=== PATIENT | male | born 1980 | race Hispanic/Latino ===

== ENCOUNTER 2023-11-30 21:18 | Emergency (ER) | payer SELFPAY ==
[2023-11-30 21:20] VITALS: BP 155/122
--- NOTE | 2023-11-30 21:48 | ED.GENMED ---
History of Present Illness
<TALIA Sahni - Last Filed: 12/01/23 03:26>
General
Chief Complaint: Back Pain
Source: patient
Exam Limitations: none
Time Seen by Provider: 11/30/23 21:27
Travel History
Have you had any contact with someone who has COVID-19?: No
Do you have any symptoms of coronavirus? Fever > 100 degrees, chills, cough, shortness of breath, sore throat, loss of taste or smell, muscle aches, or headache?: No
History of Present Illness
History of Present Illness:
This is a 43 year old male that comes in with c/o neck and back pain. States that he was lifting boxes at work and he has to straddle the conveyor belt. States that he was lifting [place] fries, Cheese steaks, Chicken and [place]. States that this was
2 weeks ago. States that at first his pain was not bad but this has continued to get worse. States that in the morning he can't feel his legs. States that he just cry's in pain in the morning and that they feel numb. States that he has some abd gwen
with nausea, headache and dizziness yesterday. Denies any fever, chills, chest pain, SOB, vomiting, diarrhea, urinary burning.
Past History
<TALIA Sahni - Last Filed: 12/01/23 03:26>
Past History
ED Past Medical History: HTN, Psychiatric (Anxiety) and Other (Obstructive sleep apnea, obesity, gout, chronic back pain, Neck pain, Chronic hip pain, )
ED Past Surgical History: Appendectomy
Social History
Tobacco: Non-smoker
Alcohol: None
Drug: None
Personal: Other (Seperated)
Living: with family
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
Family History
Family History: Other (Noncontributory)
Review of Systems
<TALIA Sahni - Last Filed: 12/01/23 03:26>
Review of Systems
All Other Systems: ROS reviewed and negative except as documented in HPI and ROS
Constitutional: Reports no symptoms; Denies fever or chills
EENT: Reports no symptoms
Respiratory: Reports no symptoms; Denies cough or trouble breathing
Cardiac: Reports no symptoms; Denies chest pain
ABD/GI: Reports abdominal pain and nausea; Denies vomiting or diarrhea
: Reports no symptoms; Denies dysuria, frequency or urgency
Musculoskeletal: Reports neck pain and back pain
Skin: Reports no symptoms
Neurological: Reports dizzy (Yesterday) and headache
Psychiatric: Reports no symptoms
Phy Exam
<TALIA Sahni - Last Filed: 12/01/23 03:26>
General Physical Exam
General Presentation: no apparent distress
General age: appears stated age
General Skin: warm and dry
General Habitus: normal
General Mental: alert
ENT Exam
ENT Exam: TM's normal, pharynx normal and neck supple
Eye Exam
Eye Exam: EOMI
Cardiovascular Exam
Cardiovascular Exam: regular rate/rhythm, no edema, no murmur and normal peripheral pulses
Pulmonary Exam
Pulmonary Exam: lungs clear, no respiratory distress, no rales, chest non tender, no crackles, no rhonchi, no wheezing and no cough
Gastrointestinal Exam
Gastrointestinal Exam: normal bowel sounds (Patient is eating a large [employer]), non tender, soft, no organomegaly, no pulsatile mass, non distended and other (Normal rectal Tone)
Musculoskeletal Exam
Musculoskeletal Exam: full ROM, no edema and other (C/o Cervical and spinal tenderness with palpation, Left leg smaller then right, Patient able to life his legs off the bed. )
Skin Exam
Skin Exam: normal color, warm/dry, no rash, no petechia and other (States that his sensation is less on the left with palpation)
Psychiatric Exam
Psychiatric Exam: normal mood/affect
Course
<TALIA Sahni - Last Filed: 12/01/23 03:26>
Orders/Labs/Results
Orders:
Orders
11/30/23 21:43
CT Cervical Spine W/o Iv Contr Urgent
Comment:
Reason For Exam: Pain
CT Lumbar Spine W/o Iv Contras Urgent
Comment:
Reason For Exam: Low back pain
11/30/23 21:44
Acetaminophen [Tylenol] 1,000 mg PO NOW STA
Ketorolac [Toradol] 30 mg IV NOW STA
11/30/23 21:48
Dexamethasone Sod Phosphate [Decadron] 20 mg IV NOW STA
11/30/23 21:52
CRP [C-Reactive Protein] Urgent
Complete Blood Count/With Diff Urgent
Comprehensive Metabolic Panel Urgent
Sed Rate [Erythrocyte Sed Rate] Urgent
11/30/23 22:30
EKG [Electrocardiogram (*1)] Urgent
Reason for Study: Chest Pain
EKG- Treatment ONCE
11/30/23 23:00
Troponin I Urgent
11/30/23 23:46
US Abdomen Complete/Upper Urgent
Comment:
Reason For Exam: Right sided abd pain
12/01/23 01:42
MR Lumbar Without Contrast Stat
Comment:
Reason For Exam: LE numbness, urinary retention
Recent pill cam endoscopy?: No
12/01/23 02:28
Lorazepam [Ativan] 2 mg IV NOW STA
12/01/23 02:32
Haloperidol Lactate [Haldol] 5 mg IM NOW STA
12/01/23 02:50
Lorazepam [Ativan] 1 mg IV NOW STA
12/01/23 02:52
Flumazenil [Romazicon] 0.5 mg .ROUTE .STK-MED ONE
Abnormal Lab Results
11/30/23
21:52
WBC 4.1 L 10^3/uL
(4.8-10.8)
RBC 4.28 L 10^6/uL
(4.70-6.10)
Hgb 11.4 L g/dL
(13.0-18.0)
Hct 34.1 L %
(39.0-52.0)
MCV 79.7 L fL
(80.0-94.0)
MCH 26.6 L pg
(27.0-31.0)
MPV 10.9 H fL
(7.4-10.4)
Neutrophils % 36.5 L %
(42.2-75.2)
Monocytes % 10.1 H %
(1.7-9.3)
Eosinophils % 11.6 H %
(0-6)
ESR 21 H mm/hour
(0-20)
Sodium 134 L mmol/L
(135-145)
C-Reactive Protein 24.60 H mg/L
(0.0-10.00)
11/30/23 21:52
11/30/23 21:52
WBC very slightly low. H/H slightly low. Sed rate very slightly elevated CRP elevated. Troponin <0.012,
Vital Signs
Initial and Last Documented VS:
Initial Vital Signs
Temp Pulse Resp BP Pulse Ox
97.7 F 105 22 155/122 100
11/30/23 21:20 11/30/23 21:20 11/30/23 21:20 11/30/23 21:20 11/30/23 21:20
Last Documented Vital Signs
Temp Pulse Resp BP Pulse Ox
97.7 F 84 16 135/80 98
11/30/23 21:20 12/01/23 01:58 12/01/23 01:58 12/01/23 01:58 12/01/23 01:58
Painter Assistant consulted with Physician
Painter Assistant consulted with physician?: Yes
Name of Physician Consulted:
<Papito Begum, DO - Last Filed: 12/01/23 02:50>
Orders/Labs/Results
Orders:
Orders
11/30/23 21:43
CT Cervical Spine W/o Iv Contr Urgent
Comment:
Reason For Exam: Pain
CT Lumbar Spine W/o Iv Contras Urgent
Comment:
Reason For Exam: Low back pain
11/30/23 21:44
Acetaminophen [Tylenol] 1,000 mg PO NOW STA
Ketorolac [Toradol] 30 mg IV NOW STA
11/30/23 21:48
Dexamethasone Sod Phosphate [Decadron] 20 mg IV NOW STA
11/30/23 21:52
CRP [C-Reactive Protein] Urgent
Complete Blood Count/With Diff Urgent
Comprehensive Metabolic Panel Urgent
Sed Rate [Erythrocyte Sed Rate] Urgent
11/30/23 22:30
EKG [Electrocardiogram (*1)] Urgent
Reason for Study: Chest Pain
EKG- Treatment ONCE
11/30/23 23:00
Troponin I Urgent
11/30/23 23:46
US Abdomen Complete/Upper Urgent
Comment:
Reason For Exam: Right sided abd pain
12/01/23 01:42
MR Lumbar Without Contrast Stat
Comment:
Reason For Exam: LE numbness, urinary retention
Recent pill cam endoscopy?: No
12/01/23 02:28
Lorazepam [Ativan] 2 mg IV NOW STA
12/01/23 02:32
Haloperidol Lactate [Haldol] 5 mg IM NOW STA
12/01/23 02:50
Lorazepam [Ativan] 1 mg IV NOW STA
12/01/23 02:52
Flumazenil [Romazicon] 0.5 mg .ROUTE .STK-MED ONE
Abnormal Lab Results
11/30/23
21:52
WBC 4.1 L 10^3/uL
(4.8-10.8)
RBC 4.28 L 10^6/uL
(4.70-6.10)
Hgb 11.4 L g/dL
(13.0-18.0)
Hct 34.1 L %
(39.0-52.0)
MCV 79.7 L fL
(80.0-94.0)
MCH 26.6 L pg
(27.0-31.0)
MPV 10.9 H fL
(7.4-10.4)
Neutrophils % 36.5 L %
(42.2-75.2)
Monocytes % 10.1 H %
(1.7-9.3)
Eosinophils % 11.6 H %
(0-6)
ESR 21 H mm/hour
(0-20)
Sodium 134 L mmol/L
(135-145)
C-Reactive Protein 24.60 H mg/L
(0.0-10.00)
11/30/23 21:52
11/30/23 21:52
Vital Signs
Initial and Last Documented VS:
Initial Vital Signs
Temp Pulse Resp BP Pulse Ox
97.7 F 105 22 155/122 100
11/30/23 21:20 11/30/23 21:20 11/30/23 21:20 11/30/23 21:20 11/30/23 21:20
Last Documented Vital Signs
Temp Pulse Resp BP Pulse Ox
97.7 F 84 16 135/80 98
11/30/23 21:20 12/01/23 01:58 12/01/23 01:58 12/01/23 01:58 12/01/23 01:58
<TALIA Sahni - Last Filed: 12/01/23 03:26>
MDM/Problems Addressed
Differential Diagnosis Includes:
chronic back and neck pain, Herniated disc, Compression fractures
MDM/Problems Addressed:
This is a 43 year old male that comes in with c/o neck and back pain. States that this started 2 weeks ago from lifting heavy boxes and it has continued to get worse.
Will get CT of Cervical and Lumbar spine, Medicate for pain.
Back into see patient. Explained that his Blood work is normal. His CT of the Cervical spine and Lumbar spine shows degenerative changes. Patient States that he doesn't understand why he can't feel his feet in the morning. States that he wants to
stay in the hospital so some one can see how he is in the morning. Now patient is also c/o right sided abd pain. Will get US.
US cont- normal limits. Pancreas obscured by bowel gas.NO appreciable focal abnormality in the liver. Liver mildly enlarged [id number] approximately 18.5cm in length. Bilateral kidneys appear normal and are symmetric. Borderline enlarged spleen
measuring 13.3cm in length. NO appreciable free fluid.
DR Begum into see patient.
Patient had 1000ml of urine in his bladder. Patient then walked with the bathroom with the use of a walker and was able to urinate 900 and there is still 150mg post void. Will hold off on Borden catheter.
After Multiple conversation with Dr. Begum. The geothermal technician was called in. Patient was given IV Ativan 2 mg and Haldol 5mg IM. Patient got down to the MRI and then refused to have the Testing done. Nursing was sent with an additional Atival 1mg for IV
use and patient refused. Patient at this time is refusing to sign the AMA form as he has repeated over and over that he will follow up with his family doctor tomorrow. Explained that he can stay in the ER until the medication that he has been given
wears off and then he can leave. The AMA form was explained to patient and the risk read. Patient continues to refused.
Chronic conditions affecting care:
Chronic back and neck pain
Acute Exacerbation and/or Progression of Chronic Illness:
Chronic back and neck pain
<TALIA Sahni - Last Filed: 12/01/23 03:26>
*Radiology
Radiology exam reviewed: radiology read reviewed (Cervical spine-Multilevel cervical degenerative disc disease. Lumbar- there is multilevel lumbar degenerative disc disease and degenerative facet joint disease as outlined above. ) and other (US-No
acute findings. No appreciable gallstones or sludge within the gallbladder. Suspected 3mm gallbladder polyp. No appreciable gallbladder wall thickening or perichoecystic fluid. Negative sonographic Hickey's sign per report. NO ductal dilation. CBD
measures 4mm in diameter which is within)
*Pulse Oximetry
Patient hypoxic: no
*EKG
Interpreted by ED Provider?: Yes
Heart Rate: 78
Rate: normal
Rhythm: sinus
[place]: left axis deviation
Interval: normal interval
QRS Pattern: normal QRS
Ischemia: no ischemia
*Engine Head Repairer Interpretation
Rate: Engine Head Repairer- N/A
*Critical Care Note
Total Time (30-74mins, 75-104mins- exclusive of procedures): Not Applicable
<Papito Begum DO - Last Filed: 12/01/23 02:50>
Update Note
Update Note:
0249 multiple conversations with the patient as he is concerned about his anxiety related to an MRI. In light of his numbness and urinary described as emergency and that this needed to be done as soon as possible. Will trial sedation with Haldol
and Ativan.
ED Attending Note
<TALIA Sahni - Last Filed: 12/01/23 03:26>
-
Portions of this chart may have been created with voice recognition software.� Occasional wrong word or��sound alike� substitutions may have occurred due to the inherent limitations of voice recognition software.
<Papito Begum DO - Last Filed: 12/01/23 02:50>
ED Attending Note
Patient seen and examined by attending physician: Yes
I performed the substantive portion of visit, reviewed & personally made and approve the management plan that is documented in note by myself or MALCOLM.: Yes
ED Attending Note:
43-year-old male presents with bilateral lower extremity numbness. About 2 weeks ago he was lifting boxes. Patient now has numbness from his waist to his toes bilaterally. Patient also feels that he has to urinate but cannot has not urinated all
day. He also feels like he has been constipated. Patient denies fevers. Denies IV drug abuse. Exam: Normal bilateral pedal pulses. Is able to lift legs bilaterally. Bedside bladder scan shows 1 L of urine. Assessment and plan: Unfortunately
does need a stat MRI to rule out cauda equina syndrome in light of his urinary symptoms of bilateral lower extremity numbness. Case discussed with radiologist. MRI ordered. Patient states he is claustrophobic and will provide Ativan
Discharge Plan
Departure
Patient Disposition: Against Medical Advice
Date of Disposition: 12/01/23
Time of Disposition: 03:19
Patient with high blood pressure during this ER visit?: Yes
Condition: Good
Covid-19: Not Applicable
Discharge Problem:
Back pain, Bilateral leg numbness
Prescriptions:
No Action
losartan 50 MG tablet
100 mg PO DAILY
fluoxetine 10 MG capsule
20 mg PO DAILY
allopurinol 300 MG tablet
300 mg PO DAILY PRN (Reason: Gout)
alprazolam [Xanax] 1 mg Tablet
1 mg PO TID
buprenorphine-naloxone [Suboxone] 8-2 mg Tablet, Sublingual
1 tab SUBLINGUAL QID
Referrals:
Darion Jacob MD [Family Provider] -
Interventions
Interventions:
*Risk Screen - Suicide Last Done: 11/30/23 22:08
*General Assessment Last Done: 11/30/23 22:08
*Neglect/Abuse Screening Last Done: 11/30/23 22:08
*ED COVID-19 Vaccine History Last Done: 11/30/23 22:08
ED-Musculoskeletal Assessment Last Done: 11/30/23 22:10
[2023-11-30 21:57] LABS: % Basophils 0.7 % (0-2); % Eosinophils 11.6 % (0-6); % Immature Granulocytes 0.5 % (0-0.5); % Lymphocytes 40.6 % (20.5-51.1); % Monocytes 10.1 % (1.7-9.3); % Neutrophils 36.5 % (42.2-75.2); Absolute Eosinophils 0.5 10^3/uL (0-0.7); Absolute Lymphocytes 1.7 10^3/uL (1.2-3.4); Absolute Monocytes 0.4 10^3/uL (0.1-0.6); Absolute Neutrophils 1.5 10^3/uL (1.4-6.5); Hematocrit 34.1 % (39.0-52.0); Hemoglobin 11.4 g/dL (13.0-18.0); Mean Corp Hgb Conc. 33.4 g/dL (33.0-37.0); Mean Corpuscular Hgb 26.6 pg (27.0-31.0); Mean Corpuscular Volume 79.7 fL (80.0-94.0); Mean Platelet Volume 10.9 fL (7.4-10.4); Nucleated Red Blood Cells % 0 % (-); Platelet Count 220 10^3/uL (130-400); Red Blood Cell Count 4.28 10^6/uL (4.70-6.10); White Blood Cell Count 4.1 10^3/uL (4.8-10.8)
[2023-11-30] MEDS: TYLENOL 1000 MG PO (22:01)
[2023-11-30] MEDS: TORADOL 30 MG IV (22:03)
[2023-11-30] MEDS: DECADRON 20 MG IV (22:04)
[2023-11-30 22:07] VITALS: BMI 36.7
[2023-11-30 22:16] LABS: ALT (SGPT) 20 U/L (0-50); AST (SGOT) 33 U/L (17-59); Albumin 4.2 g/dl (3.5-5.0); Alkaline Phosphatase 80 U/L (38-126); Blood Urea Nitrogen 19 mg/dl (9-20); Calcium 9.1 mg/dl (8.4-10.2); Carbon Dioxide 25 mmol/L (22-30); Chloride 104 mmol/L (98-107); Estimated Creatinine Clearance > 125 ml/min; Glucose 89 mg/dl (70-99); Sodium 134 mmol/L (135-145); Total Bilirubin 0.7 mg/dl (0.2-1.3); Total Protein 7.2 g/dl (6.3-8.2); eGFR > 60.00
[2023-11-30 22:17] LABS: Erythrocyte Sed Rate 21 mm/hour (0-20)
[2023-11-30 23:01] VITALS: BP 130/89
[2023-11-30 23:28] LABS: Troponin I < 0.012 ng/ml
[2023-12-01 00:05] VITALS: BP 136/77
[2023-12-01 01:58] VITALS: BP 135/80
[2023-12-01] MEDS: ATIVAN 2 MG IV (02:45)
[2023-12-01] MEDS: HALDOL 5 MG IM (02:45)
[2023-12-01 03:19] VITALS: BP 129/80
[2023-12-01 04:00] VITALS: BP 106/55
[2023-12-01 05:00] VITALS: BP 110/71
[2023-12-01 06:00] VITALS: BP 109/67
--- NOTE | 2023-12-01 07:44 | EDRN ---
Patient given a copy of his CT scan reports and lab work. Taken to lobby in wheelchair.
== END 2023-12-01 07:40 | disposition left against medical advice (07) ==
LOC: EMR 21:18
PROVIDERS: Clinical Nurse Specialist Family Health; EMERGENCY PHYSICIAN Emergency Medicine; FAMILY PHYSICIAN Family Medicine
DX: M54.50 Low back pain, unspecified (principal); M54.2 Cervicalgia; R20.0 Anesthesia of skin; X50.1XXA Overexertion from prolonged static or awkward postures, initial encounter; Y99.0 Civilian activity done for income or pay; I10 Essential (primary) hypertension
CPT/HCPCS: 99285; 96374; 96375 ×2; 96372; 51798; 72125; 72131; 76700; 80053; 84484; 85025; 85652; 86140; 93005

== ENCOUNTER 2025-03-30 06:11 | Day surgery (SDC) | payer BC, SELFPAY ==
[2025-03-15 14:10] VITALS: BMI 36.1
[2025-03-15 14:12] LABS: Hematocrit 38.6 % (39.0-52.0); Hemoglobin 12.4 g/dL (13.0-18.0); Mean Corp Hgb Conc. 32.1 g/dL (33.0-37.0); Mean Corpuscular Volume 83.5 fL (80.0-94.0); Platelet Count 264 10^3/uL (130-400); Red Cell Dist. Width 13.6 % (11.5-14.5)
[2025-03-15 14:48] LABS: ALT (SGPT) 21 U/L (0-50); AST (SGOT) 20 U/L (17-59); Albumin 4.6 g/dl (3.5-5.0); Alkaline Phosphatase 93 U/L (38-126); Blood Urea Nitrogen 17 mg/dl (9-20); Calcium 9.6 mg/dl (8.4-10.2); Carbon Dioxide 30 mmol/L (22-30); Chloride 103 mmol/L (98-107); Estimated Creatinine Clearance > 125 ml/min; Glucose 98 mg/dl (70-99); Potassium 4.6 mmol/L (3.5-5.1); Sodium 140 mmol/L (135-145); Total Protein 7.2 g/dl (6.3-8.2); eGFR > 60.00
[2025-03-23 09:05] VITALS: BMI 36.1
[2025-03-30] VITALS (9 sets, daily range): BP systolic 110–123; BP diastolic 61–79; BMI 36.1
[2025-03-30] MEDS: TYLENOL 1000 MG PO (11:23)
[2025-03-30] MEDS: METHOCARBAMOL 1500 MG PO (11:23)
[2025-03-30] MEDS: LYRICA 150 MG PO (11:23)
[2025-03-30] MEDS: CELEBREX 200 MG PO (11:23)
[2025-03-30] MEDS: SUBUTEX 8 MG SL (12:34)
== END 2025-03-30 15:40 | disposition other institution (70) ==
LOC: SDS 06:11
PROVIDERS: ATTENDING PHYSICIAN Orthopaedic Surgery Orthopaedic Surgery of the Spine; FAMILY PHYSICIAN Family Medicine
DX: R06.02 Shortness of breath (principal); Z53.9 Procedure and treatment not carried out, unspecified reason; M50.321 Other cervical disc degeneration at C4-C5 level; M50.322 Other cervical disc degeneration at C5-C6 level; Z96.641 Presence of right artificial hip joint
CPT/HCPCS: 22551; 22552; C1713; 36415; 71045; 71046; 74177; 80053; 84484; 85025; 85027; 87070; 93005; Q9967

== ENCOUNTER 2025-03-30 15:52 | Emergency (ER) | payer BC, SELFPAY ==
[2025-03-30 15:55] VITALS: BP 129/76
[2025-03-30 16:34] LABS: Hematocrit 40.6 % (39.0-52.0); Hemoglobin 13.4 g/dL (13.0-18.0); Mean Corp Hgb Conc. 33.0 g/dL (33.0-37.0); Mean Corpuscular Volume 81.2 fL (80.0-94.0); Nucleated Red Blood Cells % 0 % (-); Platelet Count 189 10^3/uL (130-400); Red Cell Dist. Width 13.5 % (11.5-14.5)
[2025-03-30 16:48] LABS: ALT (SGPT) 19 U/L (0-50); AST (SGOT) 23 U/L (17-59); Albumin 4.5 g/dl (3.5-5.0); Alkaline Phosphatase 96 U/L (38-126); Blood Urea Nitrogen 22 mg/dl (9-20); Calcium 8.8 mg/dl (8.4-10.2); Carbon Dioxide 25 mmol/L (22-30); Chloride 106 mmol/L (98-107); Glucose 160 mg/dl (70-99); Potassium 4.3 mmol/L (3.5-5.1); Sodium 138 mmol/L (135-145); Total Protein 7.3 g/dl (6.3-8.2); eGFR > 60.00
[2025-03-30 16:59] LABS: Troponin I < 0.012 ng/ml
[2025-03-30 18:31] VITALS: BMI 34.8
[2025-03-30 18:32] VITALS: BP 115/64
[2025-03-30] MEDS: NSS 1000 IV (18:42)
[2025-03-30] MEDS: ZOFRAN 4 MG IV (18:44)
[2025-03-30 19:00] VITALS: BP 117/74
[2025-03-30] MEDS: DILAUDID 0.5 MG IV (19:36)
[2025-03-30 20:17] VITALS: BP 120/74
--- NOTE | 2025-03-30 20:46 | ED.GENMED ---
History of Present Illness
General
Chief Complaint: Breathing Problem
Source: patient
Exam Limitations: none
Time Seen by Provider: 03/30/25 18:22
Nursing documentation reviewed up to this point in time: agreed with
History of Present Illness
History of Present Illness:
Patient states he was scheduled for a surgical fusion but developed SOB and chest pain prior to procedure. Sent to ED for eval. He reports now pain is epigastric. No difficulty breathing, no chest pain. No prior history of same.
Past History
Past History
ED Past Medical History: HTN, Psychiatric (Anxiety) and Other (Obstructive sleep apnea, obesity, gout, chronic back pain, Neck pain, Chronic hip pain, )
ED Past Surgical History: Appendectomy
Social History
Tobacco: Non-smoker
Alcohol: None
Drug: None
Personal: Other (Seperated)
Living: with family
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
Family History
Family History: Other (Noncontributory)
Review of Systems
Review of Systems
Allergies reviewed?: Yes
All Other Systems: ROS reviewed and negative except as documented in HPI and ROS
Constitutional: Reports no symptoms
EENT: Reports no symptoms
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
Cardiac: Reports chest pain (Chest pain LAUNDRY ROUTE DRIVER)
ABD/GI: Reports abdominal pain (epigastric)
: Reports no symptoms
Musculoskeletal: Reports no symptoms
Skin: Reports no symptoms
Neurological: Reports no symptoms
Psychiatric: Reports no symptoms
Phy Exam
General Physical Exam
General Presentation: well appearing and no apparent distress
General age: appears stated age
General Skin: warm and dry
General Habitus: normal
General Mental: alert
Cardiovascular Exam
Cardiovascular Exam: regular rate/rhythm and no edema
Pulmonary Exam
Pulmonary Exam: lungs clear and no respiratory distress
Gastrointestinal Exam
Gastrointestinal Exam: normal bowel sounds, soft, no organomegaly, no pulsatile mass, non distended and no cva tenderness
Palpation: generalized: Moderate tenderness (Moderate epigastric pain)
Musculoskeletal Exam
Musculoskeletal Exam: full ROM and neuro vasc intact
Skin Exam
Skin Exam: normal color, warm/dry and no rash
Psychiatric Exam
Psychiatric Exam: normal mood/affect
Scores
Heart Failure Risk
Heart Failure Risk Score: Not Applicable
Course
Orders/Labs/Results
Orders:
Orders
03/30/25 15:57
Electrocardiogram (*1) Urgent
Reason for Study: Chest Pain
03/30/25 15:58
EKG- Treatment ONCE
03/30/25 16:21
Complete Blood Count/With Diff Urgent
Comprehensive Metabolic Panel Urgent
Troponin I Urgent
03/30/25 18:29
0.9% Sodium Chloride 1000 ml [Nss] 1,000 ml IV BOLUS
Ondansetron Injectable [Zofran] 4 mg IV NOW STA
03/30/25 18:30
CR Chest - 2 Views Urgent
Comment:
Reason For Exam: chest pain, attempted intubation this AM. Repeat.
03/30/25 19:06
HYDROmorphone [Dilaudid] 0.5 mg IV NOW STA
03/30/25 19:07
CT Abd/pelvis W Iv Cont Urgent
Comment:
Reason For Exam: diffuse pain
Abnormal Lab Results
03/30/25
16:21
MCH 26.8 L pg
(27.0-31.0)
Absolute Lymphs (auto) 0.3 L 10^3/uL
(1.2-3.4)
Neutrophils % 93.7 H %
(42.2-75.2)
Lymphocytes % 4.0 L %
(20.5-51.1)
BUN 22 H mg/dl
(9-20)
Glucose 160 H mg/dl
(70-99)
03/30/25 16:21
03/30/25 16:21
Vital Signs
Initial and Last Documented VS:
Initial Vital Signs
Temp Pulse Resp BP Pulse Ox
97.4 F 82 18 129/76 100
03/30/25 15:55 03/30/25 15:55 03/30/25 15:55 03/30/25 15:55 03/30/25 15:55
Last Documented Vital Signs
Temp Pulse Resp BP Pulse Ox
98.6 F 76 22 120/74 98
03/30/25 18:33 03/30/25 19:45 03/30/25 19:45 03/30/25 20:17 03/30/25 20:46
*Radiology
Radiology exam reviewed: radiology read reviewed
*Pulse Oximetry
SaO2: 98
Oxygen Mode of Delivery: Room air
Patient hypoxic: no
*Critical Care Note
Total Time (30-74mins, 75-104mins- exclusive of procedures): Not Applicable
Update Note
Update Note:
Patient to ED for report of SOB, CP prior to cervical spine surgery this AM/ Arrives in ED complaining of epigastric pain. Given IVF and dose of pain medications and symptoms have resolved. Labs, CXR, Abd CT results reviewed with him. No findings
to explain his symptoms. He is now symptom free. Will discharge home, close follow up wt PCP. Given instructions on s/s to return to ED and he is agreeable to pln.
ED Attending Note
-
Portions of this chart may have been created with voice recognition software.� Occasional wrong word or��sound alike� substitutions may have occurred due to the inherent limitations of voice recognition software.
Discharge Plan
Departure
Patient Disposition: Home (Routine Discharge)
Date of Disposition: 03/30/25
Time of Disposition: 20:46
Patient with high blood pressure during this ER visit?: No
Condition: Good
Covid-19: Not Applicable
Discharge Problem:
Abdominal pain
Instructions: Abdominal pain in adults - Discharge instructions
Prescriptions:
No Action
buprenorphine-naloxone [Suboxone] 8-2 mg Tablet, Sublingual
1 tab SUBLINGUAL QID
lamotrigine 200 mg Tablet
200 mg PO HS
clonazepam 1 mg Tablet
1 mg PO BID
prazosin 5 mg Capsule
5 mg PO HS
gabapentin 800 mg Tablet
800 mg PO PRN PRN (Reason: pain)
buspirone 30 mg Tablet
30 mg PO BID
hydroxyzine HCl 25 mg Tablet
25 mg PO HS
ibuprofen 600 mg Tablet
600 mg PO Q6H PRN (Reason: pain)
aripiprazole 10 mg Tablet
10 mg PO HS
duloxetine 30 mg Capsule,Delayed Release(Dr/Ec)
30 mg PO 1400
oxycodone 20 mg Tablet,Oral Only,Ext.Rel.12 Hr
20 mg PO QID
amphetamine sulfate 20 mg Tablet,Disintegrating
20 mg PO BID
amphetamine 20 mg Tablet, Ir - Er, Biphasic 24hr
30 mg PO DAILY
acetaminophen 500 mg Capsule
1,000 mg PO Q6H PRN (Reason: pain)
Referrals:
Darion Jacob MD [Family Provider, Family Practice] - Tomorrow
Activity Restrictions/Additional Instructions:
Return to the emergency department immediately for any changes in/worsening of your symptoms.
Interventions
Interventions:
*Risk Screen - Suicide Last Done: 03/30/25 15:55
*General Assessment Last Done: 03/30/25 15:55
*Neglect/Abuse Screening Last Done: 03/30/25 18:37
*ED- Fall Risk Assessment Last Done: 03/30/25 18:37
*ED COVID-19 Vaccine History Last Done: 03/30/25 18:37
*Nursing Disposition Last Done: 03/30/25 21:02
ED- Cardiac Assessment Last Done: 03/30/25 18:37
ED- Pulmonary Assessment Last Done: 03/30/25 18:37
Discharge Date and Time
Discharge Date/Time: 03/30/25 21:15
Print Language: CENTRAL AFRICAN
== END 2025-03-30 21:15 | disposition home or self-care (01) ==
LOC: EMR 15:52
PROVIDERS: Student in an Organized Health Care Education/Training Program; EMERGENCY PHYSICIAN Student in an Organized Health Care Education/Training Program; FAMILY PHYSICIAN Family Medicine
DX: R10.13 Epigastric pain (principal); I10 Essential (primary) hypertension; G89.29 Other chronic pain; G47.33 Obstructive sleep apnea (adult) (pediatric); Z90.49 Acquired absence of other specified parts of digestive tract
CPT/HCPCS: 71046; 74177; 80053; 84484; 85025; 93005; 96361; 96374; 96375; 99284; Q9967

== ENCOUNTER 2025-04-20 05:53 | Day surgery (SDC) | payer BC, SELFPAY ==
--- NOTE | 2025-04-18 14:49 | PTCARENOTE ---
Patients 03/30 CXR abnormal- reviewed by Dr. Maurer- no additional interventions required
[2025-04-20] VITALS (17 sets, daily range): BP systolic 104–144; BP diastolic 59–92; PULSE 79; BMI 34.3
[2025-04-20] MEDS: METHOCARBAMOL 1500 MG PO (06:24)
[2025-04-20] MEDS: LYRICA 150 MG PO (06:24)
[2025-04-20] MEDS: TYLENOL 1000 MG PO ×4 (06:24→23:33)
[2025-04-20] MEDS: CELEBREX 200 MG PO (06:25)
[2025-04-20] MEDS: NORMOSOL-R/PLASMALYTE-A 1000 IV ×3 (06:58→20:10)
[2025-04-20] MEDS: DILAUDID 0.5 MG IV ×3 (09:14→09:52)
[2025-04-20] MEDS: DILAUDID 0.25 MG IV (10:57)
--- NOTE | 2025-04-20 12:06 | W.PN.ORTHO ---
Today's Communication / Plan
-
d/c when stable
Assessment
.
Dressing:
Clean, dry and intact.
Assessment:
Chronic pain/opioid dependent-adjust pain control and monitor-Narcan prn inpatient and Rx OP
Plan
.
Surgery / Date: C4-5-[address] Tavarez 04/20/25
Activity:
Out of bed.
PT/OT
Discharge Plan: Home
Vital Signs and Labs
.
Vital Signs and Labs:
Temp Pulse Resp BP Pulse Ox
97.2 F 65 13 117/81 99
04/20/25 10:10 04/20/25 11:45 04/20/25 11:45 04/20/25 11:00 04/20/25 11:55
--- NOTE | 2025-04-20 12:18 | W.DS.TRANS ---
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
-
Discharge Instructions:
Discharge Diagnosis/Procedures C4-5-6 ACDF Tavarez 04/20/25
Diet As tolerated
Driving Restrictions No driving
Instructions:
Stand-Alone Forms: [facility] Cervical D/C Inst.
Changes to Home Medications: Yes
Discharge Medications:
DC Medications w/original date entered in [facility]
buprenorphine 8 mg-naloxone 2 mg sublingual tablet 1 tab sublingual QID 02/20/23
acetaminophen 500 mg capsule 1,000 mg PO Q6H PRN pain 03/23/25
amphetamine 20 mg tablet, immediate and extended release 24 hour 30 mg PO DAILY 03/23/25
aripiprazole 10 mg tablet 10 mg PO HS 03/23/25
buspirone 30 mg tablet 30 mg PO BID 03/23/25
clonazepam 1 mg tablet 1 mg PO BID 03/23/25
gabapentin 800 mg tablet 800 mg PO PRN PRN pain 03/23/25
hydroxyzine HCl 25 mg tablet 25 mg PO HS 03/23/25
lamotrigine 200 mg tablet 200 mg PO HS 03/23/25
prazosin 5 mg capsule 5 mg PO HS 03/23/25
amphetamine sulfate 10 mg tablet 20 mg PO BID 04/08/25
Saccharomyces boulardii 250 mg capsule (Florastor) 250 mg PO BID #1 cap 04/20/25
cephalexin 500 mg capsule 500 mg PO QID infection prevention #20 caps 04/20/25
dexamethasone 4 mg tablet 4 mg PO BID inflammation #6 tabs 04/20/25
docusate sodium 100 mg capsule (Colace) 100 mg PO BID stool softner #1 cap 04/20/25
magnesium hydroxide 400 mg/5 mL oral suspension (Milk of Magnesia) 30 ml PO HS PRN constipation #1 mL 04/20/25
naloxone 4 mg/actuation nasal spray (Narcan) 4 mg intranasal Q2M PRN opioid overdose #1 ea 04/20/25
ondansetron 4 mg disintegrating tablet 4 mg PO Q6H PRN n/v #20 tabs 04/20/25
oxycodone 20 mg tablet 20 mg PO Q6H PRN pain 04/20/25
sennosides 8.6 mg tablet (Senokot) 17.2 mg (2 x 8.6 mg) PO BID laxative #2 tabs 04/20/25
Home Medication Changes
Saccharomyces boulardii 250 mg capsule (Florastor) 250 mg PO BID #1 cap 04/20/25
cephalexin 500 mg capsule 500 mg PO QID infection prevention #20 caps 04/20/25
dexamethasone 4 mg tablet 4 mg PO BID inflammation #6 tabs 04/20/25
docusate sodium 100 mg capsule (Colace) 100 mg PO BID stool softner #1 cap 04/20/25
magnesium hydroxide 400 mg/5 mL oral suspension (Milk of Magnesia) 30 ml PO HS PRN constipation #1 mL 04/20/25
naloxone 4 mg/actuation nasal spray (Narcan) 4 mg intranasal Q2M PRN opioid overdose #1 ea 04/20/25
ondansetron 4 mg disintegrating tablet 4 mg PO Q6H PRN n/v #20 tabs 04/20/25
Pending Results: No
[2025-04-20] MEDS: VALIUM INJECTION 5 MG IV ×2 (13:47→20:11)
[2025-04-20] MEDS: ROXICODONE 20 MG PO ×3 (13:47→23:31)
[2025-04-20] MEDS: SUBUTEX 8 MG SL ×3 (15:37→23:31)
[2025-04-20] MEDS: DECADRON 4 MG IV ×2 (16:02→23:34)
[2025-04-20] MEDS: LYRICA 100 MG PO ×2 (16:03→23:33)
[2025-04-20] MEDS: ANCEF 5 IV ×2 (16:03→23:34)
[2025-04-20] MEDS: SENOKOT 17.2 MG PO (20:11)
[2025-04-20] MEDS: COLACE 100 MG PO (20:11)
[2025-04-20] MEDS: ADDERALL 20 MG PO (20:11)
[2025-04-20] MEDS: ADDERALL 15 MG PO (21:16)
[2025-04-20] MEDS: BUSPAR 30 MG PO (21:17)
[2025-04-20] MEDS: LAMICTAL 200 MG PO (23:31)
[2025-04-20] MEDS: ABILIFY 10 MG PO (23:31)
[2025-04-20] MEDS: ATARAX 25 MG PO (23:31)
--- NOTE | 2025-04-20 23:56 | PTCARENOTE ---
Patient's bp- 104/59, HR- 77. Patient is scheduled to get Lyrica 100/ oxycodone 20/ Lamictal/ Minipress. Notified Julien MELGAR. As per advise will administer Minipress if BP stable in an hour.
[2025-04-21] MEDS: MINIPRESS 5 MG PO ×2 (00:45→23:07)
[2025-04-21 03:10] VITALS: BP 106/58
[2025-04-21] MEDS: NORMOSOL-R/PLASMALYTE-A 1000 IV (05:23)
[2025-04-21] MEDS: TYLENOL PO (05:30)
[2025-04-21 07:15] VITALS: BP 120/62
[2025-04-21 07:47] LABS: Hematocrit 37.8 % (39.0-52.0); Hemoglobin 12.5 g/dL (13.0-18.0)
--- NOTE | 2025-04-21 07:51 | CM ---
Addendum entered by Crystal Viramontes RN 04/22/25 09:38:
Plan for home with [facility].
PLAN: [facility]
Addendum entered by Crystal Viramontes RN 04/22/25 08:25:
Patient is requesting discharge to home. CM called [facility] and was updated that authorization is Pending Mail List Processor Review.
Patient [facility] be agree[facility] to [facility].
Patient's address is:
[address] [place] [address]
[place] [address]
CM will await PT/OT evaluation for further discharge planning efforts.
CM updated [facility] Admission RN with new referral pending PT/OT evaluation
Addendum entered by Crystal Viramontes RN 04/21/25 13:39:
Pending authorization number:
[id number]
Authorization is going to medical administrative assistant.
Addendum entered by Crystal Viramontes RN 04/21/25 13:18:
[facility] has accepted. Pending authorization.
Addendum entered by Crystal Viramontes RN 04/21/25 12:11:
Patient has been recommended for SNF. Patient stated that he has been to [facility] and would be agreeable to return. CM sent referrals to [facility] and [facility].
CM will await acceptance.
Original Note:
CM reviewed medical records. Patient confirmed demographics. Patient lives with his mother and step father. Patient has izaguirre a history of VN, but is currently not on service. Patient has been to STR at [facility] ([facility]). Patient is active with
his PCP. Patient has medication coverage.
PLAN: Home with family support. follow up with outpatient PT when surgically cleared.
[2025-04-21 08:01] LABS: Blood Urea Nitrogen 17 mg/dl (9-20); Calcium 9.3 mg/dl (8.4-10.2); Carbon Dioxide 27 mmol/L (22-30); Chloride 105 mmol/L (98-107); Estimated Creatinine Clearance > 125 ml/min; Glucose 132 mg/dl (70-99); Potassium 4.6 mmol/L (3.5-5.1); Sodium 138 mmol/L (135-145); eGFR > 60.00
--- NOTE | 2025-04-21 08:23 | W.PN.SP ---
Today's Communication / Plan
-
s/p acdf
Chronic pain pt
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
PT
D/c
Subjective / Objective
Subjective Data
Shoulders feel better
Denies weakness
Has neck pain
Objective Data
Vital Signs
Temp Pulse Resp BP Pulse Ox
98.6 F 62 17 120/62 100
04/21/25 07:15 04/21/25 07:15 04/21/25 07:15 04/21/25 07:15 04/21/25 07:15
Intake and Output
04/20/25 04/21/25 04/22/25
06:59 06:59 06:59
Intake Total 2670 / 2670
Output Total 1700 / 1700
Balance 970 / 970
Intake:
Oral fluids 1470 / 1470
IV fluids (Total) 1200 / 1200
Output:
Urine, Voided 1700 / 1700
Lab Data
04/21/25 07:16
04/21/25 07:16
Physical Exam
-
Moving air easily
NVI
--- NOTE | 2025-04-21 08:24 | W.DS.TRANS ---
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
-
Discharge Instructions:
Discharge Diagnosis/Procedures C4-5-6 ACDF [facility] 04/20/25
Diet As tolerated
Driving Restrictions No driving
Instructions:
Stand-Alone Forms: [facility] Cervical D/C Inst.
Changes to Home Medications: No
Discharge Medications:
DC Medications w/original date entered in [facility]
buprenorphine 8 mg-naloxone 2 mg sublingual tablet 1 tab sublingual QID 02/20/23
acetaminophen 500 mg capsule 1,000 mg PO Q6H PRN pain 03/23/25
amphetamine 20 mg tablet, immediate and extended release 24 hour 30 mg PO DAILY 03/23/25
aripiprazole 10 mg tablet 10 mg PO HS 03/23/25
buspirone 30 mg tablet 30 mg PO BID 03/23/25
clonazepam 1 mg tablet 1 mg PO BID 03/23/25
gabapentin 800 mg tablet 800 mg PO PRN PRN pain 03/23/25
hydroxyzine HCl 25 mg tablet 25 mg PO HS 03/23/25
lamotrigine 200 mg tablet 200 mg PO HS 03/23/25
prazosin 5 mg capsule 5 mg PO HS 03/23/25
amphetamine sulfate 10 mg tablet 20 mg PO BID 04/08/25
Saccharomyces boulardii 250 mg capsule (Florastor) 250 mg PO BID #1 cap 04/20/25
cephalexin 500 mg capsule 500 mg PO QID infection prevention #20 caps 04/20/25
dexamethasone 4 mg tablet 4 mg PO BID inflammation #6 tabs 04/20/25
docusate sodium 100 mg capsule (Colace) 100 mg PO BID stool softner #1 cap 04/20/25
magnesium hydroxide 400 mg/5 mL oral suspension (Milk of Magnesia) 30 ml PO HS PRN constipation #1 mL 04/20/25
naloxone 4 mg/actuation nasal spray (Narcan) 4 mg intranasal Q2M PRN opioid overdose #1 ea 04/20/25
ondansetron 4 mg disintegrating tablet 4 mg PO Q6H PRN n/v #20 tabs 04/20/25
oxycodone 20 mg tablet 20 mg PO Q6H PRN pain 04/20/25
sennosides 8.6 mg tablet (Senokot) 17.2 mg (2 x 8.6 mg) PO BID laxative #2 tabs 04/20/25
Home Medication Changes
Pending Results: No
[2025-04-21] MEDS: ROXICODONE 20 MG PO ×4 (08:38→23:07)
[2025-04-21] MEDS: SENOKOT 17.2 MG PO ×2 (08:38→19:49)
[2025-04-21] MEDS: BUSPAR 30 MG PO ×2 (08:38→19:49)
[2025-04-21] MEDS: SUBUTEX 8 MG SL ×4 (08:39→23:07)
[2025-04-21] MEDS: ADDERALL 20 MG PO ×2 (08:39→19:49)
[2025-04-21] MEDS: DECADRON 4 MG IV ×2 (08:40→23:08)
[2025-04-21] MEDS: VALIUM INJECTION 5 MG IV ×2 (08:40→19:49)
[2025-04-21] MEDS: LYRICA 100 MG PO ×3 (08:40→23:06)
[2025-04-21] MEDS: COLACE 100 MG PO ×2 (08:40→19:49)
[2025-04-21] MEDS: ADDERALL 15 MG PO ×2 (08:40→19:49)
--- NOTE | 2025-04-21 10:59 | W.PN.ORTHO ---
Today's Communication / Plan
-
d/c
Assessment
.
Distal Motor Intact: Yes
Dressing:
Clean, dry and intact.
Assessment:
Chronic pain/opioid dependent-adjust pain control and monitor-Narcan prn inpatient and Rx OP--pain well controlled
Plan
.
Surgery / Date: C4-5-[address] [facility] 04/20/25
Activity:
Out of bed.
PT/OT
Subjective
.
.:
Patient resting comfortably.
Vital Signs and Labs
.
Vital Signs and Labs:
Lab Results
04/21/25 07:16
04/21/25 07:16
Temp Pulse Resp BP Pulse Ox
98.6 F 62 17 120/62 100
04/21/25 07:15 04/21/25 07:15 04/21/25 07:15 04/21/25 07:15 04/21/25 07:15
Physical Exam
-
HEENT: No pallor, cyanosis, or jaundice. Throat clear.
NECK: Supple. No JVD.
RESPIRATORY: Lungs clear to auscultation.
CVS: S1, S2 normal. RRR.� No murmur, rub or gallop.
ABDOMEN: Soft, non-tender. No distension. BS+/normal.
EXTREMITIES: strength equal, no calf pain with palpation
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 No focal deficits. 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
[2025-04-21 11:30] VITALS: BP 126/63
[2025-04-21] MEDS: TYLENOL 1000 MG PO ×3 (12:08→23:07)
[2025-04-21 15:03] VITALS: BP 134/65
[2025-04-21 19:05] VITALS: BP 121/58
[2025-04-21] MEDS: LAMICTAL 200 MG PO (23:06)
[2025-04-21 23:07] VITALS: BP 109/54
[2025-04-21] MEDS: ABILIFY 10 MG PO (23:07)
[2025-04-21] MEDS: ATARAX 25 MG PO (23:07)
[2025-04-22 03:14] VITALS: BP 112/62
[2025-04-22] MEDS: TYLENOL 1000 MG PO (05:55)
[2025-04-22 08:00] VITALS: BP 129/69
[2025-04-22] MEDS: BUSPAR 30 MG PO (08:40)
[2025-04-22] MEDS: ADDERALL 15 MG PO (08:40)
[2025-04-22] MEDS: SUBUTEX 8 MG SL (08:40)
[2025-04-22] MEDS: ADDERALL 20 MG PO (08:40)
[2025-04-22] MEDS: SENOKOT 17.2 MG PO (08:40)
[2025-04-22] MEDS: VALIUM INJECTION 5 MG IV (08:41)
[2025-04-22] MEDS: ROXICODONE 20 MG PO (08:41)
[2025-04-22] MEDS: DECADRON 4 MG IV (08:41)
[2025-04-22] MEDS: LYRICA 100 MG PO (08:41)
[2025-04-22] MEDS: COLACE 100 MG PO (08:41)
[2025-04-22 09:14] VITALS: BP 121/66
--- NOTE | 2025-04-22 10:06 | VNURNOTE ---
Home Health Liaison met with patient at bedside to discuss [facility] nurse/therapy, visits, schedule and homebound status. Patient is agreeable and understands that visits at home will be 2-3 x per week to assess and teach medical management. Patient
is aware that [facility] will contact them for start of care in 1-2 days after discharge from . Provided contact number for [facility].
PM [facility] referral completed in [facility].
--- NOTE | 2025-04-22 10:40 | W.PN.ORTHO ---
Today's Communication / Plan
-
d/c-now functioning improved w/ PT/OT mod I requiring additional home rehab needs
Assessment
.
Dressing:
Clean, dry and intact.
Assessment:
Chronic pain/opioid dependent-adjust pain control and monitor-Narcan prn inpatient and Rx OP--pain well controlled
Plan
.
Surgery / Date: C4-5-[address] Tav[facility] 04/20/25
Activity:
Out of bed.
PT/OT
Discharge Plan: Home w/ VN
Subjective
.
.:
Patient resting comfortably.
Vital Signs and Labs
.
Vital Signs and Labs:
Lab Results
04/21/25 07:16
04/21/25 07:16
Temp Pulse Resp BP Pulse Ox
97.8 F 73 20 129/69 99
04/22/25 08:00 04/22/25 08:00 04/22/25 08:00 04/22/25 08:00 04/22/25 08:00
Physical Exam
-
HEENT: No pallor, cyanosis, or jaundice. Throat clear.
NECK: Supple. No JVD.
RESPIRATORY: Lungs clear to auscultation.
CVS: S1, S2 normal. RRR.� No murmur, rub or gallop.
ABDOMEN: Soft, non-tender. No distension. BS+/normal.
EXTREMITIES: strength equal, no calf pain with palpation
[employer]: AOx3. No focal deficits. glass bender grossly intact
== END 2025-04-22 11:15 | disposition home health service (06) ==
LOC: SDS 05:53
PROVIDERS: Physician Assistant Medical; ATTENDING PHYSICIAN Orthopaedic Surgery Orthopaedic Surgery of the Spine
DX: M48.02 Spinal stenosis, cervical region (principal)
CPT/HCPCS: 22551; 22552; 22853; 72020; 80048; 85014; 85018; 97116; 97162; 97167; 97530; 97535; C1713